=== PATIENT | female | born 1945 | race Caucasian/White ===

== ENCOUNTER → 2017-02-15 | Outpatient (CLI) | payer MEDICARE, BC ==
--- NOTE | 2017-02-16 12:58 | MM ---
Reason for exam: screening (asymptomatic). Last mammogram was performed 1 year and 1 month ago. History: Patient is postmenopausal. Family history of breast cancer in mother at age 68. Took progesterone for 2 years beginning at age 48. Physical Findings: A clinical breast exam by your physician is recommended on an annual basis and results should be correlated with mammographic findings. MG 3D Screening Mammo W/Cad Bilateral CC and MLO view(s) were taken. Prior study comparison: January 31, 2016, bilateral MG 3d screening mammo w/cad. December 09, 2014, bilateral MG screening mammo w CAD. October 28, 2013, bilateral digital screening mammo w/CAD. There are scattered fibroglandular densities. Finding: There are typically benign vascular calcifications in both breasts. There is no discrete abnormality. ASSESSMENT: Benign, BI-RAD 2 RECOMMENDATION: Routine screening mammogram of both breasts in 1 year.
== END | disposition home or self-care (01) ==
LOC: RADMAMWWP 10:54
PROVIDERS: ATTEND Family Medicine
DX: Z12.31 Encounter for screening mammogram for malignant neoplasm of breast (principal)
CPT/HCPCS: 77063; G0202

== ENCOUNTER → 2017-06-26 | Outpatient (CLI) | payer MEDICARE, BC ==
[2017-06-26 18:03] LABS: Blood Urea Nitrogen 16 mg/dL (7-17); Non-African American GFR(MDRD) >60 (>60 ml/min/1.73 sqM)
--- NOTE | 2017-06-27 08:33 | CT ---
EXAMINATION TYPE: CT abdomen pelvis w con DATE OF EXAM: 06/26/2017 COMPARISON: NONE INDICATION: Left sided abdominal pain x 2 weeks with constipation. DLP: 1164.00 mGycm, Automated exposure control for dose reduction was used. CONTRAST: 100 mL of Omnipaque 300. Study performed with Oral Contrast TECHNIQUE: Axial images were obtained from above the diaphragm to the pubic rami in the axial plane a t 5 mm thick sections. Reconstructed images are reviewed on the computer in the coronal plane. FINDINGS: Limited CT sections are obtained the lung bases. There is some minimal pneumonitis change along the posterior lateral left lung base. Lung bases otherwise appear clear.. CT ABDOMEN: Liver: Normal Spleen: Normal Pancreas: There is a 0.7 cm hypodensity within the posterior tail of the pancreas. Series 3 image 22- 23. Additional characterization can be performed with MRI. Adrenal glands: Left adrenal gland is enlarged at 2.0 cm with an irregular hypodense area within. Thi s is nonspecific. Metastatic lesion could be considered. Mild lipoma is not excluded. This could be f urther evaluated with MRI the right adrenal gland appears normal Gallbladder: Surgically absent Kidneys: No masses are evident. No hydronephrosis is present. No cysts are present. Delayed images were obtained through the kidneys, which remain unremarkable. Aorta: Vascular calcification is within the aorta. Inferior vena cava: Normal. CT PELVIS: Loops of bowel within the abdomen and pelvis are normal. Fecal debris is within the colon. There are loops of bowel lacking oral contrast limiting their evaluation. Appendix: Normal as visualized. Urinary bladder: There may be some dependent on calcification present. This could be some wall enhanc ement. Wall thickening is not identified. Cystocele is present. Genitourinary structures: Uterus and ovaries are surgically absent Osseous structures: No suspicious lytic or sclerotic lesions. Facet degenerative changes through the lumbar spine. IMPRESSIONS: 1. Enlarged left heterogenous density adrenal gland measuring 2.0 cm. 2. 0.7 cm hypodensity within the posterior tail of pancreas is nonspecific. Cyst and neoplasm within the differential. Additional characterization with contrast MRI is recommended. A Yellow message has been communicated to Radha Duenas DO via the [employer] system on 06/27/2017 8:30 AM, Message ID [id number].
== END | disposition home or self-care (01) ==
LOC: RADCTMAIN 17:29
PROVIDERS: ATTEND Family Medicine
DX: E27.8 Other specified disorders of adrenal gland (principal); R93.3 Abnormal findings on diagnostic imaging of other parts of digestive tract
CPT/HCPCS: 82565; 84520; 74177; 36415; Q9967

== ENCOUNTER → 2018-03-12 | Outpatient (CLI) | payer MEDICARE, BC ==
--- NOTE | 2018-03-12 15:12 | P.HPOB ---
History of Present Illness H&P Date: 03/12/18 Chief Complaint: The patient is here for her routine gynecologic exam and mammogram. This is a 72-year-old with an LMP of 1979. She is status post HERMES ?BSO in 1983 uterine fibroids. The patient has a known cystocele and this has been followed conservatively. She previously was seen by Dr. Cui for this and the decision was made to proceed conservatively without surgery since it was asymptomatic. She is not specifically complaining of greater bulging from the vagina, but she has been experiencing some pelvic pains especially after bowel movements. She also has noticed more pelvic pains when bending over. The pain tends to be more on the left side and she describes it as a cramping type pain she has found that using Vaseline in the rectal area seems to help the discomfort. She is currently being treated for a urinary tract infection after developing urinary symptoms including urgency. She is now on her last day of Cipro, but she continues to have urinary symptoms. She is otherwise without complaints. Review of Systems She has lost 4 pounds over the last 3 years. She denies respiratory, cardiac and G.I. problems. She denies maltreatment or problems with falling. : she denies any significant problems with urinary leakage. But has had UTI symptoms and is being treated for this as in the HPI. 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 Past PRIMARY SPECIAL EDUCATOR history: she has no history of STDs. Past Surgical History: Cholecystectomy, Hysterectomy (HERMES), Tubal Ligation Additional Past Surgical History / Comment(s): Removal of umbilicus for chronic infection at age 21. Colonoscopy 2014 Past Psychological History: No Psychological Hx Reported Smoking Status: Never smoker Past Alcohol Use History: None Reported Past Drug Use History: None Reported Additional History: She has been since 1966 and is retired. - Past Family History Mother Family Medical History: Cancer (Breast) Brother(s) Family Medical History: Diabetes Mellitus, Myocardial Infarction ([place]) Medications and Allergies Home Medications Medication Instructions Recorded Confirmed Type Gabapentin [Neurontin] 100 mg PO HS 08/23/14 03/12/18 History Glimepiride [Amaryl] 1 tab PO DAILY 08/23/14 03/12/18 History metFORMIN HCL 1,000 mg PO BID 08/23/14 03/12/18 History sitaGLIPtin PHOSPHATE [Januvia] 100 mg PO DAILY 08/23/14 03/12/18 History Aspirin [Children's Aspirin] mg PO DAILY 03/12/18 History Allergies Allergy/AdvReac Type Severity Reaction Status Date / Time cephalexin monohydrate AdvReac Nausea Verified 03/12/18 14:05 [From Keflex] Exam Blood pressure 137/80, height 5'3", weight 159 pounds, BMI 28, temperature 97.6 and pulse 82. This is a well-developed well-nourished heavyset white female who is alert and oriented times 3 in no acute distress. HEENT: Within normal limits. NECK: Supple without mass or thyromegaly. CHEST AND LUNGS: Clear to auscultation. HEART: Regular rate and rhythm. BREASTS: Are without mass or discharge. AXILLARY EXAM: Negative for adenopathy. BACK: Negative for CVA tenderness. ABDOMEN: Soft, mildly obese, nontender, without palpable masses. PELVIC EXAM: External genitalia reveals mild atrophy with a grade for cystocele protruding from the introitus approximately 3 cm.. Vagina appears normal with mild atrophy and no excoriation of the mucosa. The vaginal cuff is well supported. Bimanual examination is negative for mass or tenderness. RECTAL EXAM: Rectovaginal exam is negative for mass or tenderness and is negative for occult blood. There is no significant rectocele noted. EXTREMITIES: Nontender. IMPRESSION: 1. 72-year-old menopausal female status post HERMES done for benign reasons with increasing grade 4 cystocele. 2. Intermittent pelvic pains especially after bowel movement or bending over. These pains may be related to the worsening cystocele. Differential diagnosis will also include symptomatic rectal or G.I. pain. This time I doubt ovarian pain since she believes her ovaries were removed at the time of her hysterectomy. Also the way she describes her pain makes me think that this is more likely G.I. type pain or pain related to the pelvic prolapse. PLAN: 1. Pap smears have been discontinued. 2. Self breast awareness was discussed. 3. Screening mammogram will be done today. 4. Osteoporosis prevention was discussed. We will plan a repeating bone density testing in one year. She did have a normal bone density test done in 2012. 5. We had a long discussion regarding her worsening cystocele and her symptoms. She will be referred to a supervisor webbing for possible surgical correction of the cystocele and further evaluation. She is requesting to be referred to Dr. Talamantes. 6. She will return in one year and PRN.
--- NOTE | 2018-03-14 11:20 | MM ---
Reason for exam: screening (asymptomatic). Last mammogram was performed 1 year and 1 month ago. History: Patient is postmenopausal. Family history of breast cancer in mother at age 68. Took progesterone for 2 years beginning at age 48. Physical Findings: A clinical breast exam by your physician is recommended on an annual basis and results should be correlated with mammographic findings. MG 3D Screening Mammo W/Cad Bilateral CC and MLO view(s) were taken. Prior study comparison: February 15, 2017, bilateral MG 3d screening mammo w/cad. January 31, 2016, bilateral MG 3d screening mammo w/cad. There are scattered fibroglandular densities. No significant changes when compared with prior studies. ASSESSMENT: Negative, BI-RAD 1 RECOMMENDATION: Routine screening mammogram of both breasts in 1 year.
== END | disposition home or self-care (01) ==
LOC: WWCWWP 13:43
PROVIDERS: ATTEND Obstetrics & Gynecology
DX: Z12.31 Encounter for screening mammogram for malignant neoplasm of breast (principal)
CPT/HCPCS: 77063; 77067

== ENCOUNTER 2018-10-26 12:23 | Emergency (ER) | payer MEDICARE, BC ==
[2018-10-26 12:44] VITALS: TEMP 97.7
[2018-10-26] MEDS ORDERED: MORPHINE SULFATE 4 MG/ML SYRINGE IV STA (14:02)
--- NOTE | 2018-10-26 14:07 | ED ---
General Adult HPI - General Chief complaint: Recheck/Abnormal Lab/Rx Stated complaint: upper back pain/tingling in fingers & mouth Time Seen by Provider: 10/26/18 13:04 Source: patient, RN notes reviewed Mode of arrival: ambulatory Limitations: no limitations - History of Present Illness Initial comments: Patient is a pleasant 72-year-old female presenting to the emergency Department with complaints of paresthesias. Onset was earlier this morning around 7:30 or so. Patient had numbness started her small finger that extended to her other fingers on her left hand. Patient states symptoms lasted less than half an hour then resolved. Patient also feels she had some symptoms on the left side of her mouth. Patient ever denies any weakness. No speech problems. No confusion. No visual changes. No history of similar symptoms previously. Patient has also noticed that she has discomfort of her mid upper back between her shoulder blades. Patient states discomfort is 8/10. Patient denies having discomfort of her anterior chest. No leg pain or leg swelling. - Related Data Home Medications Medication Instructions Recorded Confirmed Gabapentin [Neurontin] 100 mg PO HS 08/23/14 03/12/18 Glimepiride [Amaryl] 1 tab PO DAILY 08/23/14 03/12/18 metFORMIN HCL 1,000 mg PO BID 08/23/14 03/12/18 sitaGLIPtin PHOSPHATE [Januvia] 100 mg PO DAILY 08/23/14 03/12/18 Aspirin [Children's Aspirin] mg PO DAILY 03/12/18 Allergies Allergy/AdvReac Type Severity Reaction Status Date / Time cephalexin monohydrate AdvReac Nausea Verified 10/26/18 12:44 [From Keflex] Review of Systems ROS Statement: Those systems with pertinent positive or pertinent negative responses have been documented in the HPI. ROS Other: All systems not noted in ROS Statement are negative. Constitutional: Denies: fever Eyes: Denies: eye pain ENT: Denies: ear pain Respiratory: Denies: cough, dyspnea Cardiovascular: Reports: as per HPI. Denies: chest pain Endocrine: Denies: fatigue Gastrointestinal: Denies: abdominal pain Genitourinary: Denies: dysuria Musculoskeletal: Reports: as per HPI, back pain Skin: Denies: rash Neurological: Reports: as per HPI, paresthesias. Denies: headache, weakness, confusion Past Medical History Past Medical History: Diabetes Mellitus, Hyperlipidemia, Hypertension Additional Past Medical History / Comment(s): HAND AND FEET PAINS. History of Any Multi-Drug Resistant Organisms: None Reported Past Surgical History: Cholecystectomy, Hysterectomy, Tubal Ligation Additional Past Surgical History / Comment(s): Removal of umbilicus for chronic infection at age 21. Colonoscopy 2014 Past Psychological History: No Psychological Hx Reported Smoking Status: Never smoker Past Alcohol Use History: None Reported Past Drug Use History: None Reported - Past Family History Mother Family Medical History: Cancer (Breast) Brother(s) Family Medical History: Diabetes Mellitus, Myocardial Infarction ([place]) General Exam Limitations: no limitations General appearance: alert, in no apparent distress Head exam: Present: atraumatic Eye exam: Present: normal appearance, PERRL, EOMI. Absent: nystagmus ENT exam: Present: normal oropharynx Neck exam: Present: normal inspection Respiratory exam: Present: normal lung sounds bilaterally Cardiovascular Exam: Present: regular rate, normal rhythm Expanded Peripheral pulses: 2+: Radial (R), Radial (L), Posterior Tibialis (R), Posterior Tibialis (L), Dorsalis Pedis (R), Dorsalis Pedis (L) GI/Abdominal exam: Present: soft. Absent: distended, tenderness Extremities exam: Present: normal inspection Back exam: Present: normal inspection. Absent: tenderness Neurological exam: Present: alert, oriented X3, CN II-XII intact. Absent: motor sensory deficit Expanded Neurological exam: Present: protecting the airway Patient oriented to: Present: person, place, time Speech: Present: fluid speech Cranial nerves: EOM's Intact: Normal, Facial Sensation: Normal Cerebellar function: Finger to Nose: Normal Sensory exam: Upper Extremity Light Touch: Normal, Lower Extremity Light Touch: Normal Motor strength exam: RUE: 5, LUE: 5, RLE: 5, LLE: 5 Eye Response: (4) open spontaneously Motor Response: (6) obeys commands Verbal Response: (5) oriented Psychiatric exam: Present: normal affect, normal mood Skin exam: Present: normal color Course Vital Signs 10/26/18 12:40 Temperature 97.7 F Pulse Rate 111 H Respiratory 18 Rate Blood Pressure 178/80 O2 Sat by Pulse 99 Oximetry EKG Findings - EKG Comments: EKG Findings:: Normal sinus rhythm at 83. UT 158. QRS 88. QT 384. QTC 462. Left axis. Normal QRS. No acute ST change. Medical Decision Making - Medical Decision Making Patient reevaluated and resting comfortably in bed. Patient and family updated on results. Case was discussed in detail with Dr. De León, covering for Dr. Duenas who does recommend transfer. - Lab Data Result diagrams: 10/26/18 14:26 10/26/18 14:26 Lab Results 10/26/18 10/26/18 10/26/18 Range/Units 14:26 14:26 14:26 WBC 9.6 (3.8-10.6) k/uL RBC 4.88 (3.80-5.40) m/uL Hgb 13.6 (11.4-16.0) gm/dL Hct 40.2 (34.0-46.0) % MCV 82.4 (80.0-100.0) fL MCH 27.9 (25.0-35.0) pg MCHC 33.9 (31.0-37.0) g/dL RDW 13.4 (11.5-15.5) % Plt Count 352 (150-450) k/uL Neutrophils % 78 % Lymphocytes % 13 % Monocytes % 5 % Eosinophils % 2 % Basophils % 1 % Neutrophils # 7.4 (1.3-7.7) k/uL Lymphocytes # 1.2 (1.0-4.8) k/uL Monocytes # 0.5 (0-1.0) k/uL Eosinophils # 0.2 (0-0.7) k/uL Basophils # 0.1 (0-0.2) k/uL PT (9.0-12.0) sec INR (<1.2) APTT (22.0-30.0) sec Sodium 139 (137-145) mmol/L Potassium 4.7 (3.5-5.1) mmol/L Chloride 103 (98-107) mmol/L Carbon Dioxide 26 (22-30) mmol/L Anion Gap 10 mmol/L BUN 19 H (7-17) mg/dL Creatinine 0.68 (0.52-1.04) mg/dL Est GFR (CKD-EPI)AfAm >90 (>60 ml/min/1.73 sqM) Est GFR (CKD-EPI)NonAf 88 (>60 ml/min/1.73 sqM) Glucose 222 H (74-99) mg/dL Calcium 9.6 (8.4-10.2) mg/dL Total Bilirubin 0.6 (0.2-1.3) mg/dL AST 37 H (14-36) U/L ALT 57 H (9-52) U/L Alkaline Phosphatase 64 (38-126) U/L Total Creatine Kinase 36 (30-135) U/L CK-MB (CK-2) 1.4 (0.0-2.4) ng/mL CK-MB (CK-2) Rel Index 3.9 Troponin I <0.012 (0.000-0.034) ng/mL Total Protein 7.8 (6.3-8.2) g/dL Albumin 4.3 (3.5-5.0) g/dL 10/26/18 Range/Units 14:26 WBC (3.8-10.6) k/uL RBC (3.80-5.40) m/uL Hgb (11.4-16.0) gm/dL Hct (34.0-46.0) % MCV (80.0-100.0) fL MCH (25.0-35.0) pg MCHC (31.0-37.0) g/dL RDW (11.5-15.5) % Plt Count (150-450) k/uL Neutrophils % % Lymphocytes % % Monocytes % % Eosinophils % % Basophils % % Neutrophils # (1.3-7.7) k/uL Lymphocytes # (1.0-4.8) k/uL Monocytes # (0-1.0) k/uL Eosinophils # (0-0.7) k/uL Basophils # (0-0.2) k/uL PT 10.4 (9.0-12.0) sec INR 1.0 (<1.2) APTT 22.7 (22.0-30.0) sec Sodium (137-145) mmol/L Potassium (3.5-5.1) mmol/L Chloride (98-107) mmol/L Carbon Dioxide (22-30) mmol/L Anion Gap mmol/L BUN (7-17) mg/dL Creatinine (0.52-1.04) mg/dL Est GFR (CKD-EPI)AfAm (>60 ml/min/1.73 sqM) Est GFR (CKD-EPI)NonAf (>60 ml/min/1.73 sqM) Glucose (74-99) mg/dL Calcium (8.4-10.2) mg/dL Total Bilirubin (0.2-1.3) mg/dL AST (14-36) U/L ALT (9-52) U/L Alkaline Phosphatase (38-126) U/L Total Creatine Kinase (30-135) U/L CK-MB (CK-2) (0.0-2.4) ng/mL CK-MB (CK-2) Rel Index Troponin I (0.000-0.034) ng/mL Total Protein (6.3-8.2) g/dL Albumin (3.5-5.0) g/dL - Radiology Data Radiology results: report reviewed (Computed tomography scan the brain reveals no acute process. Computed tomography scan of the chest negative for pulmonary embolism. No aortic dissection or aneurysm.) Disposition Clinical Impression: TIA (transient ischemic attack) Disposition: OTHER INSTITUTION NOT DEFINED Is patient prescribed a controlled substance at d/c from ED?: No Referrals: Radha Duenas DO [Primary Care Provider] - 1-2 days Time of Disposition: 16:37 - Out of Hospital Transfer - Req. Specs Out of Hospital Transfer - Requested Specifics: Other Emergency Center
[2018-10-26 14:41] LABS: Basophils # (A) 0.1 k/uL (0-0.2); Basophils % (A) 1 %; Eosinophils # (A) 0.2 k/uL (0-0.7); Eosinophils % (A) 2 %; HCT 40.2 % (34.0-46.0); HGB 13.6 gm/dL (11.4-16.0); Lymphocytes # (A) 1.2 k/uL (1.0-4.8); Lymphocytes % (A) 13 %; MCH 27.9 pg (25.0-35.0); MCHC 33.9 g/dL (31.0-37.0); MCV 82.4 fL (80.0-100.0); Mean Platelet Volume 7.3; Monocytes # (A) 0.5 k/uL (0-1.0); Monocytes % (A) 5 %; Neutrophils # (A) 7.4 k/uL (1.3-7.7); Neutrophils % (A) 78 %; Platelet Count 352 k/uL (150-450); RBC 4.88 m/uL (3.80-5.40); RDW 13.4 % (11.5-15.5); WBC 9.6 k/uL (3.8-10.6)
[2018-10-26 14:50] LABS: Partial Thromboplastin Time 22.7 sec (22.0-30.0); Prothrombin Time 10.4 sec (9.0-12.0)
[2018-10-26 14:51] LABS: ALT 57 U/L (9-52); AST 37 U/L (14-36); Albumin 4.3 g/dL (3.5-5.0); Alkaline Phosphatase 64 U/L (38-126); Anion Gap 10 mmol/L; Blood Urea Nitrogen 19 mg/dL (7-17); Calcium 9.6 mg/dL (8.4-10.2); Carbon Dioxide 26 mmol/L (22-30); Chloride 103 mmol/L (98-107); Glucose 222 mg/dL (74-99); Potassium 4.7 mmol/L (3.5-5.1); Sodium 139 mmol/L (137-145); Total Bilirubin 0.6 mg/dL (0.2-1.3); Total Protein 7.8 g/dL (6.3-8.2)
[2018-10-26 15:05] LABS: Creatine Kinase 36 U/L (30-135)
[2018-10-26 15:17] LABS: Creatine Kinase MB 1.4 ng/mL (0.0-2.4); Troponin I <0.012 ng/mL (0.000-0.034)
--- NOTE | 2018-10-26 15:44 | CT ---
EXAMINATION TYPE: CT brain wo con DATE OF EXAM: 10/26/2018 COMPARISON: None HISTORY: tingling in fingers and mouth CT DLP: 1050.4 mGycm Automated exposure control for dose reduction was used. FINDINGS: There is cerebral cortical atrophy. There is no mass effect nor midline shift. There is no sign of in tracranial hemorrhage. Calvarium is intact. IMPRESSION: CEREBRAL ATROPHY. NO ACUTE INTRACRANIAL ABNORMALITY.
--- NOTE | 2018-10-26 16:03 | CT ---
EXAMINATION TYPE: CT angio chest DATE OF EXAM: 10/26/2018 3:41 PM COMPARISON: None HISTORY: pain between shoulder blades, tingling in fingertips, mouth CT DLP: 918.3 mGycm Automated exposure control for dose reduction was used. CONTRAST: CTA scan of the thorax is performed with IV Contrast, patient injected with 100 mL of Isovue 370, pul monary embolism protocol. . FINDINGS: There are 3-D post processed images. Heart size is fairly normal. There is no pericardial effusion. Thoracic aorta shows no evidence of an eurysm or dissection. There is normal contrast opacification of the pulmonary arteries. There is ciera nary artery calcification on the noncontrast images. There is mild bronchial cartilage calcification. There is a few paratracheal lymph nodes that measure less than 1 cm. There are no hilar masses. There is spurring in the thoracic spine. I see no bony destructive process. There is some mild reticular i nfiltrate in the anterior right upper lobe. There is no evidence of a pulmonary mass. There is no ple ural effusion. There is low-density 2 cm left adrenal mass. IMPRESSION: NO EVIDENCE OF EMBOLISM. NO EVIDENCE OF THORACIC AORTIC ANEURYSM OR DISSECTION. MILD RETICULAR DENSIT Y RIGHT UPPER LOBE CONSISTENT WITH SCARRING. LOW-DENSITY LEFT ADRENAL MASS SUGGESTIVE OF BENIGN DISEA SE. THIS APPEARS UNCHANGED COMPARED TO ABDOMEN CT SCAN 06/26/2017.
[2018-10-26 16:44] VITALS: BP 152/76; PULSE 83; RESP 11
== END 2018-10-26 19:15 | disposition other institution (70) ==
LOC: EC 12:23
DX: G45.9 Transient cerebral ischemic attack, unspecified (principal); E11.9 Type 2 diabetes mellitus without complications; I10 Essential (primary) hypertension; Z79.84 Long term (current) use of oral hypoglycemic drugs; Z79.82 Long term (current) use of aspirin; Z79.899 Other long term (current) drug therapy; Z88.1 Allergy status to other antibiotic agents
CPT/HCPCS: 36415; 93005; 80053; 82550; 82553; 84484; 85025; 85610; 85730; 70450; 71275; 99285; 96374; J2270; Q9967

== ENCOUNTER → 2018-11-11 | Outpatient (CLI) | payer MEDICARE, BC ==
--- NOTE | 2018-11-11 12:12 | ECHOF ---
Referral Reason:I20.0 Unstable angina I25.10 Atherosclerotic ... MEASUREMENTS -------- HEIGHT: 160.0 cm WEIGHT: 73.5 kg BP: 113/65 RVIDd: 2.5 cm (< 3.3) IVSd: 1.1 cm (0.6 - 1.1) LVIDd: 3.7 cm (3.9 - 5.3) LVPWd: 1.0 cm (0.6 - 1.1) IVSs: 1.6 cm LVIDs: 2.6 cm LVPWs: 1.3 cm LA Diam: 3.6 cm (2.7 - 3.8) LAESV Index (A-L): 23.88 ml/m Ao Diam: 3.5 cm (2.0 - 3.7) AV Cusp: 1.7 cm (1.5 - 2.6) MV EXCURSION: 15.184 mm (> 18.000) MV EF SLOPE: 76 mm/s (70 - 150) EPSS: 0.8 cm MV E Juan Antonio: 1.05 m/s MV DecT: 198 ms MV A Juan Antonio: 1.08 m/s MV E/A Ratio: 0.98 RAP: 5.00 mmHg RVSP: 30.70 mmHg FINDINGS -------- Sinus rhythm. This was a technically good study. The left ventricular size is normal. There is borderline concentric left ventricular hypertrophy. Overall left ventricular systolic function is normal with, an EF between 55 - 60 %. The right ventricle is normal in size. Normal LA size by volume 22+/-6 ml/m2. The right atrial size is normal. The aortic valve is trileaflet and appears structurally normal. The mitral valve is normal. Mild mitral regurgitation is present. Mild tricuspid regurgitation present. Right ventricular systolic pressure is normal at < 35 mmHg. There is no pulmonic regurgitation present. The aortic root size is normal. Normal inferior vena cava with normal inspiratory collapse consistent with estimated right atrial pre ssure of 5 mmHg. There is no pericardial effusion. CONCLUSIONS -------- 1. Sinus rhythm. 2. This was a technically good study. 3. The left ventricular size is normal. 4. There is borderline concentric left ventricular hypertrophy. 5. Overall left ventricular systolic function is normal with, an EF between 55 - 60 %. 6. Normal LA size by volume 22+/-6 ml/m2. 7. The aortic valve is trileaflet and appears structurally normal. 8. Mild mitral regurgitation is present. 9. Mild tricuspid regurgitation present. 10. Right ventricular systolic pressure is normal at < 35 mmHg. 11. There is no pulmonic regurgitation present. 12. The aortic root size is normal. 13. Normal inferior vena cava with normal inspiratory collapse consistent with estimated right atrial pressure of 5 mmHg. 14. There is no pericardial effusion. SIDE SPLITTER: Melissa Guerrier RDCS
== END | disposition home or self-care (01) ==
LOC: RADECHMAIN 08:06
PROVIDERS: ATTEND Family Medicine
DX: I08.1 Rheumatic disorders of both mitral and tricuspid valves (principal); I25.110 Atherosclerotic heart disease of native coronary artery with unstable angina pectoris; Z88.1 Allergy status to other antibiotic agents; Z88.8 Allergy status to other drugs, medicaments and biological substances
CPT/HCPCS: 93306

== ENCOUNTER → 2018-11-19 | Outpatient (CLI) | payer MEDICARE, BC ==
[~2018-11-19] MED LIST: REGADENOSON 0.4 MG/5 ML SYRINGE IV ONE
--- NOTE | 2018-11-19 11:23 | NM ---
EXAMINATION TYPE: NM stress lexiscan cardiolite DATE OF EXAM: 11/19/2018 COMPARISON: NONE HISTORY: Chest pain TECHNIQUE: After the intravenous administration of 9.6 mCi Tc 99m Sestamibi - Cardiolite resting SPE CT images acquired 40 minutes post injection. The patient received 0.4mg Lexiscan, 25.7 mCi Tc 99m Sestamibi - Stress images obtained [address] injection FINDINGS: Review of stress and rest SPECT images demonstrates reduced perfusion on stress images in the inferio r wall the myocardium.. Gated analysis shows normal wall motion with an estimated left ventricular e jection fraction of 71 %. Report called to referring clinician. IMPRESSION: Correlate for a small area of stress-induced reversible ischemia inferior myocardial wall.
--- NOTE | 2018-11-19 14:28 | EST ---
EXERCISE STRESS AGE: 73 SEX: F HT: 5'0" WT: 164 PROTOCOL: Lexiscan Cardiolite Stress test HEART RATE REST: 88 BLOOD PRESSURE REST: 172/77. MAXIMUM HEART RATE ACHIEVED: 96. MAXIMUM BLOOD PRESSURE: 155/69. INDICATIONS: Heart disease CLINICAL INFORMATION: Baseline rhythm is sinus mechanism rate of 88, normal axis and intervals poor progression. Baseline blood pressure 172/77 mmHg. Patient received injection of Lexiscan. Electrocardiographic monitoring revealed no evidence of diagnostic ischemic ST deviation. Cardiolite was injected per protocol. CONCLUSION: 1. Nondiagnostic electrocardiograph stress testing. 2. Nuclear images will be reported separately. MMODL / IJN: [id number] /
== END ==
LOC: RADNMMAIN 08:30
PROVIDERS: ATTEND Nurse Practitioner Family
DX: I25.110 Atherosclerotic heart disease of native coronary artery with unstable angina pectoris (principal)
CPT/HCPCS: 93017; 78452; A9500; J2785

== ENCOUNTER → 2019-07-24 | Outpatient (CLI) | payer MEDICARE, BC ==
--- NOTE | 2019-07-25 11:10 | MM ---
Reason for exam: screening (asymptomatic). Last mammogram was performed 1 year and 4 months ago. History: Patient is postmenopausal. Family history of breast cancer in mother at age 68. Took progesterone for 2 years beginning at age 48. Physical Findings: A clinical breast exam by your physician is recommended on an annual basis and results should be correlated with mammographic findings. MG 3D Screening Mammo W/Cad Bilateral CC and MLO view(s) were taken. Prior study comparison: March 12, 2018, bilateral MG 3d screening mammo w/cad. February 15, 2017, bilateral MG 3d screening mammo w/cad. There are scattered fibroglandular densities. Benign appearing bilateral calcifications. No suspicious abnormality. No significant changes when compared with prior studies. ASSESSMENT: Benign, BI-RAD 2 RECOMMENDATION: Routine screening mammogram of both breasts in 1 year.
== END | disposition home or self-care (01) ==
LOC: RADMAMWWP 14:43
PROVIDERS: ATTEND Family Medicine
DX: Z12.31 Encounter for screening mammogram for malignant neoplasm of breast (principal); Z80.3 Family history of malignant neoplasm of breast
CPT/HCPCS: 77063; 77067

== ENCOUNTER → 2021-02-09 | Outpatient (CLI) | payer MEDICARE, BC ==
--- NOTE | 2021-02-10 12:18 | MM ---
Reason for exam: screening (asymptomatic). Last mammogram was performed 1 year and 7 months ago. History: Patient is postmenopausal. Family history of breast cancer in mother at age 68. Took hormonal contraceptives for 2 months. Took progesterone for 2 years beginning at age 48. Physical Findings: A clinical breast exam by your physician is recommended on an annual basis and results should be correlated with mammographic findings. MG 3D Screening Mammo W/Cad Bilateral CC and MLO view(s) were taken. Prior study comparison: July 24, 2019, bilateral MG 3d screening mammo w/cad. March 12, 2018, bilateral MG 3d screening mammo w/cad. There are scattered fibroglandular densities. No significant changes when compared with prior studies. ASSESSMENT: Benign, BI-RAD 2 RECOMMENDATION: Routine screening mammogram of both breasts in 1 year.
== END | disposition home or self-care (01) ==
LOC: RADMAMWWP 08:13
PROVIDERS: ATTEND Family Medicine
DX: Z12.31 Encounter for screening mammogram for malignant neoplasm of breast (principal); Z80.3 Family history of malignant neoplasm of breast
CPT/HCPCS: 77063; 77067

== ENCOUNTER → 2021-05-30 | Outpatient (CLI) | payer MEDICARE, BC ==
[2021-05-30 11:31] LABS: African American GFR (CKD) >90 (>60 ml/min/1.73 sqM); Anion Gap 9 mmol/L; Blood Urea Nitrogen 15 mg/dL (7-17); Carbon Dioxide 28 mmol/L (22-30); Chloride 101 mmol/L (98-107); Glucose 190 mg/dL (74-99); Non-African American GFR(CKD) 81 (>60 ml/min/1.73 sqM); Potassium 4.7 mmol/L (3.5-5.1); Sodium 138 mmol/L (137-145)
[2021-05-30 11:49] LABS: Basophils # (A) 0.1 k/uL (0-0.2); Basophils % (A) 1 %; Eosinophils # (A) 0.2 k/uL (0-0.7); Eosinophils % (A) 3 %; HCT 39.5 % (34.0-46.0); HGB 13.4 gm/dL (11.4-16.0); Lymphocytes # (A) 1.4 k/uL (1.0-4.8); Lymphocytes % (A) 17 %; MCH 29.3 pg (25.0-35.0); MCHC 34.1 g/dL (31.0-37.0); MCV 86.1 fL (80.0-100.0); Mean Platelet Volume 8.4; Monocytes # (A) 0.4 k/uL (0-1.0); Monocytes % (A) 5 %; Neutrophils # (A) 5.7 k/uL (1.3-7.7); Neutrophils % (A) 72 %; Platelet Count 337 k/uL (150-450); RBC 4.58 m/uL (3.80-5.40); RDW 13.2 % (11.5-15.5); WBC 7.9 k/uL (3.8-10.6)
[2021-05-31 19:05] LABS: Hemoglobin A1C 8.4 % (4.0-6.0)
== END | disposition home or self-care (01) ==
LOC: LABPAT 10:01
PROVIDERS: ATTEND Obstetrics & Gynecology
DX: Z01.812 Encounter for preprocedural laboratory examination (principal); N81.11 Cystocele, midline
CPT/HCPCS: 36415; 80051; 82565; 82947; 83036; 84520; 85025; 87086

== ENCOUNTER 2024-08-18 14:29 | Emergency (ER) | payer MEDICARE, OTHER ==
[2024-08-18 17:08] LABS: Basophils # (A) 0.1 k/uL (0-0.2); Basophils % (A) 1 %; Eosinophils # (A) 0.1 k/uL (0-0.7); Eosinophils % (A) 1 %; HCT 42.3 % (34.0-46.0); Lymphocytes # (A) 1.1 k/uL (1.0-4.8); Lymphocytes % (A) 12 %; MCH 28.7 pg (25.0-35.0); MCHC 33.1 g/dL (31.0-37.0); MCV 86.7 fL (80.0-100.0); Mean Platelet Volume 7.4; Monocytes # (A) 0.4 k/uL (0-1.0); Monocytes % (A) 5 %; Neutrophils # (A) 7.6 k/uL (1.3-7.7); Neutrophils % (A) 80 %; Platelet Count 402 k/uL (150-450); RBC 4.88 m/uL (3.80-5.40); RDW 13.3 % (11.5-15.5); WBC 9.5 k/uL (3.8-10.6)
[2024-08-18 17:24] LABS: ALT 25 U/L (4-34); AST 31 U/L (14-36); African American GFR (CKD) >90 (>60 ml/min/1.73 sqM); Albumin 4.6 g/dL (3.5-5.0); Alkaline Phosphatase 71 U/L (38-126); Anion Gap 11 mmol/L; Blood Urea Nitrogen 21 mg/dL (7-17); Calcium 9.6 mg/dL (8.4-10.2); Carbon Dioxide 26 mmol/L (22-30); Chloride 100 mmol/L (98-107); Glucose 128 mg/dL (74-99); Lipase 89 U/L (23-300); Magnesium 1.4 mg/dL (1.6-2.3); Non-African American GFR(CKD) 81 (>60 ml/min/1.73 sqM); Partial Thromboplastin Time 22.9 sec (22.0-30.0); Potassium 3.7 mmol/L (3.5-5.1); Prothrombin Time 11.1 sec (10.0-12.5); Sodium 137 mmol/L (137-145); Total Bilirubin 0.7 mg/dL (0.2-1.3); Total Protein 8.1 g/dL (6.3-8.2)
[2024-08-18] MEDS: ACETAMINOPHEN TAB 325 MG TAB PO STA (17:30)
--- NOTE | 2024-08-18 17:51 | XR ---
EXAMINATION TYPE: XR thoracic spine 2V DATE OF EXAM: 08/18/2024 5:15 PM COMPARISON: None CLINICAL INDICATION: Female, 78 years old with history of pain; TECHNIQUE: XR thoracic spine 2V views of the spine in Frontal and lateral projections. FINDINGS: No evidence of acute fracture. There is scattered multilevel disk space narrowing without loss of ve rtebral body height. There is normal alignment of the thoracic vertebral bodies. Scattered osteophyte formation along the anterior and lateral aspects of the vertebral bodies. Neural foramen are patent given limitations of this exam. Spinal canal appears patent. IMPRESSION: 1. No acute osseous pathology. 2. 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 [facility], , 08/18/2024 5:48 PM
--- NOTE | 2024-08-18 17:52 | XR ---
EXAMINATION TYPE: XR chest 2V DATE OF EXAM: 08/18/2024 5:15 PM COMPARISON: Chest radiographs from 10/26/2018 CLINICAL INDICATION: Female, 78 years old with history of Chest Pain; [facility] TECHNIQUE: XR chest 2V Frontal and lateral views of the chest. FINDINGS: Lungs/Pleura: There is no evidence of pleural effusion, focal consolidation, or pneumothorax. Pulmonary vascularity: Unremarkable. Heart/mediastinum: Cardiomediastinal silhouette is unremarkable. Musculoskeletal: No acute osseous pathology. IMPRESSION: No acute cardiopulmonary disease/process. [facility], , 08/18/2024 5:49 PM
[2024-08-18 18:20] LABS: Bacteria,Urine Rare /hpf; Hyaline Casts,Urine 1 /lpf (0-2); Mucus,Urine Rare /hpf; RBC,Urine 29 /hpf (0-5); Squamous Epithelial Cell,Urine 1 /hpf (0-4); WBC,Urine 24 /hpf (0-5)
[2024-08-18 18:26] VITALS: PULSE 86; TEMP 98
[2024-08-18 18:46] LABS: Appearance,Urine Slightly Cloudy (Clear); Bilirubin,Urine Negative (Negative); Color,Urine Colorless; Glucose,Urine (UA) Negative (Negative); Ketones,Urine Negative (Negative); Protein,Urine Negative (Negative); Specific Gravity,Urine 1.008 (1.001-1.035)
[2024-08-18 18:47] LABS: Blood,Urine Negative (Negative); Leukocyte Esterase,Urine Large (Negative); Nitrite,Urine Negative (Negative); Urobilinogen,Urine <2.0 mg/dL (<2.0)
--- NOTE | 2024-08-18 20:07 | ED ---
Back Pain HPI - General Chief Complaint: Back Pain/Injury Stated Complaint: Tevin shoulder pain Time Seen by Provider: 08/18/24 14:45 Source: patient Limitations: no limitations - History of Present Illness Initial Comments: 78-year-old female presents to the emergency department with multiple complaints. Patient reports to right sided scapular pain which is tender to palpation and movement. States it has been going on for several months but has been a little bit worse over the past couple of days. She has associated nausea, congestion. Also felt some heartburn. She denies being short of breath. Patient has a history of diabetes and hypertension. Denies cardiac disease. Denies abdominal pain. No vomiting. Denies any changes in her bowel or bladder habits to include diarrhea, constipation, black or bloody stools. Patient does have frequent UTIs. She is currently on an antibiotic for her UTIs. She is supposed to have surgery on her bladder. She requires cardiac preop clearance and therefore she does have an appointment to see the book cleaner this week. No other alleviating, precipitating or modifying factors - Related Data Home Medications Medication Instructions Recorded Confirmed Glimepiride [Amaryl] 4 mg PO DAILY 08/23/14 08/21/24 metFORMIN HCL [Glucophage] 1,000 mg PO BID 08/23/14 08/21/24 sitaGLIPtin PHOSPHATE [Januvia] 100 mg PO DAILY 08/23/14 08/21/24 Aspirin [Adult Low Dose Aspirin EC] 81 mg PO DAILY 06/01/21 08/21/24 Cranberry (Unknown Dose) 2 tab PO HS 06/01/21 08/21/24 Magnesium (Unknown Dose) 1 tab PO DAILY 06/01/21 08/21/24 Multivit with Calcium,Iron,Min 1 each PO DAILY 06/01/21 08/21/24 [Women's Multivitamin] Lidocaine 5% Patch [Lidoderm] 1 patch TOPICAL DIRECTED PRN 08/21/24 08/21/24 hydroCHLOROthiazide 25 mg PO DAILY 08/21/24 08/21/24 [Hydrochlorothiazide] Allergies Allergy/AdvReac Type Severity Reaction Status Date / Time ciprofloxacin [From Cipro] Allergy Itching Verified 08/21/24 14:31 cephalexin monohydrate AdvReac Nausea, Verified 08/21/24 14:31 [From Keflex] stomach upset Review of Systems ROS Statement: Those systems with pertinent positive or pertinent negative responses have been documented in the HPI. ROS Other: All systems not noted in ROS Statement are negative. Past Medical History Past Medical History: Diabetes Mellitus, Hypertension Additional Past Medical History / Comment(s): HAND AND FEET PAINS. History of Any Multi-Drug Resistant Organisms: None Reported Past Surgical History: Cholecystectomy, Hysterectomy, Tubal Ligation Additional Past Surgical History / Comment(s): Removal of umbilicus for chronic infection at age 21. Colonoscopy 2014 Past Psychological History: No Psychological Hx Reported Smoking Status: Never smoker Past Alcohol Use History: None Reported Past Drug Use History: None Reported - Past Family History Mother Family Medical History: Cancer Brother(s) Family Medical History: Diabetes Mellitus, Myocardial Infarction (UT) General Exam Limitations: no limitations General appearance: alert, in no apparent distress Head exam: Present: atraumatic, normocephalic, normal inspection Eye exam: Present: normal appearance, PERRL, EOMI. Absent: scleral icterus, conjunctival injection, periorbital swelling ENT exam: Present: normal exam, mucous membranes moist Neck exam: Present: normal inspection. Absent: tenderness, meningismus, lymphadenopathy Respiratory exam: Present: normal lung sounds bilaterally, chest wall tenderness (Over the right posterior chest wall near the right scapula). Absent: respiratory distress, wheezes, rales, rhonchi, stridor Cardiovascular Exam: Present: regular rate, normal rhythm, normal heart sounds. Absent: systolic murmur, diastolic murmur, rubs, gallop, clicks GI/Abdominal exam: Present: soft, normal bowel sounds. Absent: distended, tenderness, guarding, rebound, rigid Extremities exam: Present: normal inspection, full ROM, normal capillary refill. Absent: tenderness, pedal edema, joint swelling, calf tenderness Back exam: Present: normal inspection Neurological exam: Present: alert, oriented X3, CN II-XII intact Psychiatric exam: Present: normal affect, normal mood Skin exam: Present: warm, dry, intact, normal color. Absent: rash Course Vital Signs 08/18/24 08/18/24 08/18/24 14:40 18:26 20:28 Temperature 97.6 F 98 F Pulse Rate 98 86 86 Respiratory 18 16 17 Rate Blood Pressure 149/82 129/78 160/68 O2 Sat by Pulse 100 97 96 Oximetry Medical Decision Making - Medical Decision Making Was pt. sent in by a medical professional or institution (, [facility], [facility]ACH, urgent care, hospital, or skilled nursing...) When possible be specific @ -No Did you speak to anyone other than the patient for history (EMS, parent, family, police, friend...)? What history was obtained from this source @ -Spoke with the for history Did you review nursing and triage notes (agree or disagree)? Why? @ -I reviewed and agree with nursing and triage notes Were old charts reviewed (outside hosp., previous admission, EMS record, old EKG, old radiological studies, urgent care reports/EKG's, skilled nursing records)? Report findings @ -No old charts were reviewed Differential Diagnosis (chest pain, altered mental status, abdominal pain women, abdominal pain men, vaginal bleeding, weakness, fever, dyspnea, syncope, headache, dizziness, GI bleed, back pain, seizure, CVA, palpatations, mental health, musculoskeletal)? @ -Differential Back Pain: Strain, zoster, cauda equina syndrome, epidural abscess, vertebral osteomyelitis, discitis, fracture, subluxation, disc herniation, DJD, spinal stenosis, dissection, AAA, pancreatitis, peptic ulcer disease, pyelonephritis, kidney stone, this is not meant to be an all-inclusive list. EKG interpreted by me (3pts min.). @ -Yes and demonstrates sinus rhythm with rate of 98. HI interval 225. QRS 106. QTc of 422. No acute ST segment elevations or depressions X-rays interpreted by me (1pt min.). @ -Yes and demonstrates no acute process CT interpreted by me (1pt min.). @ -None done U/S interpreted by me (1pt. min.). @ -None done What testing was considered but not performed or refused? (CT, X-rays, U/S, labs)? Why? @ -None What meds were considered but not given or refused? Why? @ -None Did you discuss the management of the patient with other professionals (professionals i.e. [facility] Abdullahi, ETIQUETTE COACH, lab, RT, psych nurse, psychiatric social worker, offal baler, teacher, licensed loan officer, case work aide)? Give summary @ -No Was smoking cessation discussed for >3mins.? @ -No Was critical care preformed (if so, how long)? @ -No Were there social determinants of health that impacted care today? How? (Homelessness, low income, unemployed, alcoholism, drug addiction, transpor tation, low edu. Level, literacy, decrease access to med. care, shelter, rehab)? @ -No Was there de-escalation of care discussed even if they declined (Discuss DNR or withdrawal of care, Hospice)? DNR status @ -No What co-morbidities impacted this encounter? (DM, HTN, Smoking, COPD, CAD, Cancer, CVA, ARF, Chemo, Hep., AIDS, mental health diagnosis, sleep apnea, morbid obesity)? @ -None Was patient admitted / discharged? Hospital course, mention meds given and route, prescriptions, significant lab abnormalities, going to OR and other pertinent info. @ -Upon arrival patient seen and evaluated in bed 22. Thorough history and physical exam was performed. IV access established. Laboratory studies are conducted. Chest x-ray was performed. Results are discussed with the patient. Patient comfortable discharge home at this time. She does have cardiac evaluation on Sunday. She was instructed to return for any new or worsening symptoms. Patient agreeable to the plan was discharged in stable condition Undiagnosed new problem with uncertain prognosis? @ -Yes Drug Therapy requiring intensive monitoring for toxicity (Heparin, Nitro, Insulin, Cardizem)? @ -No Were any procedures done? @ -No Diagnosis/symptom? @ -Acute right scapular pain Acute, or Chronic, or Acute on Chronic? @ -Acute Uncomplicated (without systemic symptoms) or Complicated (systemic symptoms)? @ -Complicated Side effects of treatment? @ -No Exacerbation, Progression, or Severe Exacerbation? @ -No Poses a threat to life or bodily function? How? (Chest pain, USA, UT, pneumonia, PE, COPD, DKA, ARF, appy, cholecystitis, CVA, Diverticulitis, Homicidal, Suicidal, threat to staff... and all critical care pts) @ -No - Lab Data Result diagrams: 08/18/24 16:58 08/18/24 16:58 Lab Results 08/18/24 08/18/24 08/18/24 Range/Units 16:58 16:58 16:58 WBC 9.5 (3.8-10.6) k/uL RBC 4.88 (3.80-5.40) m/uL Hgb 14.0 (11.4-16.0) gm/dL Hct 42.3 (34.0-46.0) % MCV 86.7 (80.0-100.0) fL MCH 28.7 (25.0-35.0) pg MCHC 33.1 (31.0-37.0) g/dL RDW 13.3 (11.5-15.5) % Plt Count 402 (150-450) k/uL MPV 7.4 Neutrophils % 80 % Lymphocytes % 12 % Monocytes % 5 % Eosinophils % 1 % Basophils % 1 % Neutrophils # 7.6 (1.3-7.7) k/uL Lymphocytes # 1.1 (1.0-4.8) k/uL Monocytes # 0.4 (0-1.0) k/uL Eosinophils # 0.1 (0-0.7) k/uL Basophils # 0.1 (0-0.2) k/uL PT 11.1 (10.0-12.5) sec INR 1.0 (<1.2) APTT 22.9 (22.0-30.0) sec Sodium 137 (137-145) mmol/L Potassium 3.7 (3.5-5.1) mmol/L Chloride 100 (98-107) mmol/L Carbon Dioxide 26 (22-30) mmol/L Anion Gap 11 mmol/L BUN 21 H (7-17) mg/dL Creatinine 0.72 (0.52-1.04) mg/dL Est GFR (CKD-EPI)AfAm >90 (>60 ml/min/1.73 sqM) Est GFR (CKD-EPI)NonAf 81 (>60 ml/min/1.73 sqM) Glucose 128 H (74-99) mg/dL Calcium 9.6 (8.4-10.2) mg/dL Magnesium 1.4 L (1.6-2.3) mg/dL Total Bilirubin 0.7 (0.2-1.3) mg/dL AST 31 (14-36) U/L ALT 25 (4-34) U/L Alkaline Phosphatase 71 (38-126) U/L Troponin I (0.000-0.034) ng/mL Total Protein 8.1 (6.3-8.2) g/dL Albumin 4.6 (3.5-5.0) g/dL Lipase 89 (23-300) U/L Urine Color Urine Appearance (Clear) Urine pH (5.0-8.0) Ur Specific Gardiner (1.001-1.035) Urine Protein (Negative) Urine Glucose (UA) (Negative) Urine Ketones (Negative) Urine Blood (Negative) Urine Nitrite (Negative) Urine Bilirubin (Negative) Urine Urobilinogen (<2.0) mg/dL Ur Leukocyte Esterase (Negative) Urine RBC (0-5) /hpf Urine WBC (0-5) /hpf Ur Squamous Epith Cells (0-4) /hpf Urine Bacteria (None) /hpf Hyaline Casts (0-2) /lpf Urine Mucus (None) /hpf SARS-CoV-2 (PCR) (Not Detectd) 08/18/24 08/18/24 08/18/24 Range/Units 16:58 17:32 17:32 WBC (3.8-10.6) k/uL RBC (3.80-5.40) m/uL Hgb (11.4-16.0) gm/dL Hct (34.0-46.0) % MCV (80.0-100.0) fL MCH (25.0-35.0) pg MCHC (31.0-37.0) g/dL RDW (11.5-15.5) % Plt Count (150-450) k/uL MPV Neutrophils % % Lymphocytes % % Monocytes % % Eosinophils % % Basophils % % Neutrophils # (1.3-7.7) k/uL Lymphocytes # (1.0-4.8) k/uL Monocytes # (0-1.0) k/uL Eosinophils # (0-0.7) k/uL Basophils # (0-0.2) k/uL PT (10.0-12.5) sec INR (<1.2) APTT (22.0-30.0) sec Sodium (137-145) mmol/L Potassium (3.5-5.1) mmol/L Chloride (98-107) mmol/L Carbon Dioxide (22-30) mmol/L Anion Gap mmol/L BUN (7-17) mg/dL Creatinine (0.52-1.04) mg/dL Est GFR (CKD-EPI)AfAm (>60 ml/min/1.73 sqM) Est GFR (CKD-EPI)NonAf (>60 ml/min/1.73 sqM) Glucose (74-99) mg/dL Calcium (8.4-10.2) mg/dL Magnesium (1.6-2.3) mg/dL Total Bilirubin (0.2-1.3) mg/dL AST (14-36) U/L ALT (4-34) U/L Alkaline Phosphatase (38-126) U/L Troponin I <0.012 (0.000-0.034) ng/mL Total Protein (6.3-8.2) g/dL Albumin (3.5-5.0) g/dL Lipase (23-300) U/L Urine Color Colorless Urine Appearance Slightly Cloudy H (Clear) Urine pH 6.0 (5.0-8.0) Ur Specific Gardiner 1.008 (1.001-1.035) Urine Protein Negative (Negative) Urine Glucose (UA) Negative (Negative) Urine Ketones Negative (Negative) Urine Blood Negative (Negative) Urine Nitrite Negative (Negative) Urine Bilirubin Negative (Negative) Urine Urobilinogen <2.0 (<2.0) mg/dL Ur Leukocyte Esterase Large (Negative) Urine RBC 29 H (0-5) /hpf Urine WBC 24 H (0-5) /hpf Ur Squamous Epith Cells 1 (0-4) /hpf Urine Bacteria Rare H (None) /hpf Hyaline Casts 1 (0-2) /lpf Urine Mucus Rare H (None) /hpf SARS-CoV-2 (PCR) Not Detected (Not Detectd) Disposition Clinical Impression: Back pain Disposition: HOME SELF-CARE Condition: Stable Instructions (If sedation given, give patient instructions): Back Pain (ED) Additional Instructions: Please follow-up with your primary care doctor for further evaluation of your symptoms. They may need to do further testing. Your cardiac workup was negative in the emergency department. You need to have your stress testing performed. Return for any new or worsening symptoms Is patient prescribed a controlled substance at d/c from ED?: No Referrals: Zafar San MD [Primary Care Provider] - 1-2 days Time of Disposition: 20:06
[2024-08-18] MEDS: LIDOCAINE 4% PATCH TOPICAL ONE (20:24)
[2024-08-18 20:29] VITALS: BP 160/68; RESP 17
== END 2024-08-18 20:29 | disposition home or self-care (01) ==
LOC: EC 14:29
DX: M25.511 Pain in right shoulder (principal); M54.9 Dorsalgia, unspecified; Z88.1 Allergy status to other antibiotic agents; Z11.52 Encounter for screening for COVID-19
CPT/HCPCS: 36415; 71046; 72070; 80053; 81001; 83690; 83735; 84484; 85025; 85610; 85730; 87635; 93005; 99284

== ENCOUNTER → 2024-08-18 | Outpatient (CLI) | payer MEDICARE, OTHER ==
[2024-08-18 19:36] LABS: Blood Urea Nitrogen 20.7 mg/dL (9.0-27.0); Chloride 97 mmol/L (96-109); Glucose 168 mg/dL (70-110); Potassium 4.2 mmol/L (3.5-5.5); Sodium 139 mmol/L (135-145)
[2024-08-18 19:38] LABS: Basophils # (A) 0.06 X 10*3/uL (0.00-0.10); Basophils % (A) 0.6 %; Eosinophils # (A) 0.16 X 10*3/uL (0.04-0.35); Eosinophils % (A) 1.6 %; HCT 41.1 % (37.2-46.3); HGB 13.3 g/dL (12.0-15.0); Lymphocytes # (A) 1.43 X 10*3/uL (0.90-5.00); Lymphocytes % (A) 14.2 %; MCH 28.4 pg (27.0-32.0); MCHC 32.4 g/dL (32.0-37.0); MCV 87.6 FL (80.0-97.0); Mean Platelet Volume 11.2 FL (9.5-12.2); Monocytes # (A) 0.71 X 10*3/uL (0.20-1.00); NRBC Per 100 WBC 0 X 10*3/uL (0.00-0.01); Neutrophils # (A) 7.67 X 10*3/uL (1.80-7.70); Neutrophils % (A) 76.1 %; Platelet Count 397 X 10*3/uL (140-440); RBC 4.69 X 10*6/uL (4.10-5.20); RDW 13.2 % (11.5-14.5); WBC 10.08 X 10*3/uL (4.50-10.00)
== END | disposition home or self-care (01) ==
LOC: LABWHC1 13:50
PROVIDERS: ATTEND Obstetrics & Gynecology
DX: Z01.818 Encounter for other preprocedural examination (principal); I10 Essential (primary) hypertension
CPT/HCPCS: 36415; 80051; 82565; 82947; 84520; 85025; 87086

== ENCOUNTER 2024-08-25 05:45 | Day surgery (SDC) | payer MEDICARE, OTHER ==
--- NOTE | 2024-08-22 01:28 | HP ---
HISTORY AND PHYSICAL DATE OF SURGERY: 08/25/2024. HISTORY OF PRESENT ILLNESS: The patient is well known to me for several years, who presented approximately 3 to 4 years ago with a symptomatic grade 4 cystocele and was scheduled for repair at that time. She was ultimately canceled by the medical team in advance for possible findings consistent with a silent myocardial infarction. She returned this year for re- evaluation having been apparently deemed stable by Cardiology and Primary Care and actually feels that her bulge has grown since the last time she was here. She continues to have issues with recurrent urinary tract infection, for which she sees Dr. Breen in Urology. She denies any leaking or splinting. She has requested surgical repair if she is surgically approved. PAST MEDICAL HISTORY: Significant for type 2 diabetes, history of fibroid uterus, hypertension, and frequent yeast infections. PAST SURGICAL HISTORY: Significant for cholecystectomy, hysterectomy, removal of her umbilicus secondary to infection and tubal ligation. There were no apparent anesthetic concerns. OBSTETRICAL HISTORY: 4, para 4-0-0-4 with 4 term vaginal deliveries. GYNECOLOGIC HISTORY: Unremarkable with no history of any infections to include STDs. She did undergo hysterectomy in 1981. FAMILY HISTORY: Noncontributory. SOCIAL HISTORY: The patient is and is a nonsmoker. She denies any significant alcohol or any other social concerns. CURRENT MEDICATIONS: Include, 1. Glimepiride 4 mg daily. 2. Hydrochlorothiazide 25 mg daily. 3. Januvia daily. 4. Metformin 1000 mg twice daily. 5. Nitrofurantoin 25 mg once at bedtime. 6. Cranberry extract daily. 7. Magnesium 200 mg daily. ALLERGIES: Keflex apparently caused GI upset. REVIEW OF SYSTEMS: Confined to history of present illness. PHYSICAL EXAMINATION: VITAL SIGNS: Stable. The patient is afebrile. GENERAL: This is a well-developed, well-nourished white female, in no acute distress. HEART: Has a regular rhythm and rate without murmur. LUNGS: Clear to auscultation bilaterally in all perez. ABDOMEN: Nondistended, has normoactive bowel sounds, soft, nontender, without any palpable masses, hepatosplenomegaly, or hernias. EXTREMITIES: Without any cyanosis, clubbing, or edema and are nontender to palpation bilaterally. PELVIC: Demonstrates normal external genitalia and the BUS with normal vaginal mucosa and apex. There is a grade 3 to 4 cystocele present. The uterus and cervix are surgically absent. ASSESSMENT AND PLAN: Symptomatic cystocele: The patient is scheduled for anterior colporrhaphy and is undergoing surgical clearance, which has not yet been completed at the time of this dictation. Nevertheless, the risks and complications of the procedure have been thoroughly discussed including the risks for bleeding, bleeding requiring transfusion, infection, injury to local structures to specifically include the bladder. I also have discussed the typical hospital and postoperative courses. She is scheduled for anterior colporrhaphy on the morning of August 25, 2024. MMODL / IJN: [id number] /
[2024-08-25 06:48] LABS: Glucose,Whole Blood 144 mg/dL (70-110)
[2024-08-25] MEDS: IV FLUID CONTINUATION 1,000 ML IV ONE (06:48)
[2024-08-25] MEDS: DEXAMETHASONE SOD PHOSPHATE 4 MG/ML 1 ML VIAL IV ONE (06:54)
[2024-08-25] MEDS: LACTATED RINGERS 1,000 ML IV SCH ×2 (06:54→10:11)
[2024-08-25] MEDS: ONDANSETRON 4 MG/2 ML VIAL IVP ONE (06:54)
[2024-08-25] MEDS: FAMOTIDINE 20 MG/2 ML VIAL IV STA (06:55)
[2024-08-25] MEDS ORDERED: MIDAZOLAM 2 MG/2 ML VIAL IV PRN (07:00)
[2024-08-25] MEDS ORDERED: KETOROLAC 15 MG/ML 1 ML VIAL ONE (07:29)
[2024-08-25] MEDS ORDERED: fentaNYL (PF) 50 MCG/ML 2 ML AMP ONE (07:29)
[2024-08-25] MEDS ORDERED: PROPOFOL 10 MG/ML 20 ML VIAL IV ONE (07:29)
[2024-08-25] MEDS ORDERED: LIDOCAINE 1% INJ 10MG/ML (20 ML MDV) ONE (07:29)
[2024-08-25] MEDS: VASOPRESSIN 20 UNIT/ML 1 ML VIAL SQ ONE ×2 (07:45)
[2024-08-25] MEDS: BACITRACIN ZINC 500 UNIT/GM OINT 28.4 GM TUBE TOPICAL ONE (07:47)
[2024-08-25] MEDS ORDERED: diphenhydrAMINE 25 MG CAP PO PRN (08:28)
[2024-08-25] MEDS ORDERED: METOCLOPRAMIDE 5 MG/ML 2 ML VIAL IVP PRN (08:28)
[2024-08-25] MEDS ORDERED: IBUPROFEN 600 MG TAB PO PRN (08:28)
[2024-08-25] MEDS ORDERED: diphenhydrAMINE 50 MG/ML 1 ML VIAL IVP PRN (08:28)
[2024-08-25] MEDS ORDERED: SIMETHICONE 80 MG CHEWABLE PO PRN (08:28)
[2024-08-25] MEDS ORDERED: KETOROLAC 15 MG/ML 1 ML VIAL IVP PRN (08:28)
[2024-08-25] MEDS ORDERED: ONDANSETRON 4 MG/2 ML VIAL IVP PRN (08:28)
--- NOTE | 2024-08-25 08:35 | P.OP ---
Date of Procedure: 08/25/24 Preoperative Diagnosis: #1. Symptomatic grade 4 cystocele Postoperative Diagnosis: Same Procedure(s) Performed: #1. Anterior colporrhaphy Anesthesia: other (General By LMA) Surgeon: Andrew Cui Roller Skater #1: Shanika Hdez Estimated Blood Loss (ml): 20 IV fluids (ml): 500 Urine output (ml): 100 Pathology: none sent Condition: stable Disposition: PACU Operative Findings: Preoperative pelvic evaluation under anesthesia confirmed a grade 4 cystocele present with reasonable apical support and the rectum appeared to be well supported. The postprocedural result appeared to be excellent. There was clear urine seen at the beginning and at the end of the case. Description of Procedure: The patient was prepped and draped in usual fashion after general anesthesia was administered by the anesthesiologist. A weighted speculum was placed and the uterosacral dimples were grasped with Allis clamps bilaterally. The vesicovaginal mucosa was infused with diluted vasopressin solution. The apex of the vagina was divided in a transverse fashion using a scalpel from uterosacral dimple to uterosacral dimple. The Allis clamps were transferred to the midline and the vesicovaginal mucosa undermined in the midline and divided from the apex of the vagina to the urethral apex of the repair with Allis clamps placed along the margins. The overlying mucosa was bluntly and sharply dissected from the underlying tissues bilaterally. After adequate dissection had been carried out, serial Constanza plication sutures were placed starting at the urethral apex to the apex of the vagina using 2-0 PDS. Prior to placement of the plication stitches, a Pruett catheter was placed into the bladder and it was drained of 100 mL of clear mae urine and the catheter left in place and clamped. After placing the Constanza plication stitches, the intervening redundant vaginal mucosa was trimmed bilaterally and discarded. The vaginal mucosa was then closed with a running locking stitch of 2-0 Vicryl from the urethral apex to the apex of the vagina. Estimated blood loss for the case was approximately 20 mL or less. There were no complications. All sponge, instrument, and needle counts were correct. Clear urine was again noted with a free moving catheter at the end of the case. The patient tolerated the procedure well and proceeded to the recovery room in stable condition.
[2024-08-25] MEDS: HYDROmorphone 0.5 MG/0.5 ML SYRINGE IVP PRN (08:51)
[2024-08-25 09:19] LABS: Glucose,Whole Blood 169 mg/dL (70-110)
[2024-08-25] MEDS ORDERED: LIDOCAINE 4% PATCH TOPICAL PRN (10:45)
[2024-08-25] MEDS: metFORMIN 500 MG TAB PO SCH (18:25)
[2024-08-25] MEDS: SENNOSIDES-DOCUSATE SODIUM 1 EACH TAB PO SCH (19:50)
[2024-08-26] MEDS: ACETAMINOPHEN TAB 325 MG TAB PO PRN (06:04)
[2024-08-26 06:26] LABS: Basophils % (A) 0 %; Eosinophils # (A) 0.2 k/uL (0-0.7); Eosinophils % (A) 1 %; HCT 33.8 % (34.0-46.0); HGB 11.1 gm/dL (11.4-16.0); Lymphocytes # (A) 2.1 k/uL (1.0-4.8); Lymphocytes % (A) 17 %; MCH 28.6 pg (25.0-35.0); MCHC 32.8 g/dL (31.0-37.0); Monocytes # (A) 0.8 k/uL (0-1.0); Monocytes % (A) 6 %; Neutrophils # (A) 9.1 k/uL (1.3-7.7); Neutrophils % (A) 73 %; Platelet Count 297 k/uL (150-450); RBC 3.88 m/uL (3.80-5.40); RDW 13.4 % (11.5-15.5); WBC 12.5 k/uL (3.8-10.6)
[2024-08-26] MEDS: GLIMEPIRIDE 2 MG TAB PO SCH (08:27)
[2024-08-26 08:33] VITALS: BP 132/75; PULSE 75; RESP 16; TEMP 98
--- NOTE | 2024-08-26 08:54 | P.DS ---
Providers Expected date of discharge: 08/26/24 Attending physician: Andrew Cui Primary care physician: Zafar San - Discharge Diagnosis(es) (1) Cystocele Current Visit: Yes Status: Acute Hospital Course: The patient is a 78-year-old woman who initially presented to the office several years ago with complaints of symptomatic cystocele at which time she was found with a grade 3+ cystocele. She has previously undergone hysterectomy in the past. Her initial surgery was scheduled and canceled secondary to potential cardiac complications. She represented recently having been told by primary care that she was cleared for surgery and requested cystocele repair. She was found with a grade 4 cystocele at that time. After cardiac clearance, she was taken to the operating room and underwent anterior colporrhaphy in an uncomplicated fashion. Her postoperative course was unremarkable with vital signs remaining stable and her temperature was afebrile throughout. She had her catheter removed the morning of postoperative day #1 and has not at this point we did. She is undergoing a voiding trial to ensure that she can adequately void. Assuming she is able to void 50% of her bladder volume on 2 separate occasions, she will be discharged to home on postoperative day #1 to follow-up in the office in 2 weeks for recheck in 6 weeks routinely. Discharge instructions included calling for any significantly increased bleeding, fever, pain, urinary complaints, GI complaints, or anything else that concerned her. She was most importantly instructed to do no heavy lifting over the next 6 weeks time. She understood her instructions and agrees to follow-up as noted above. Discharge medications included any normal home medications as well as [id number] analgesic pain medications. Discharge hemoglobin and hematocrit were 11.1 and 33.8 respectively. Procedures: Anterior colporrhaphy Patient Condition at Discharge: Stable Plan - Discharge Summary Discharge Rx Participant: No New Discharge Prescriptions: No Action sitaGLIPtin PHOSPHATE [Januvia] 100 mg PO DAILY metFORMIN HCL [Glucophage] 1,000 mg PO BID Glimepiride [Amaryl] 4 mg PO DAILY hydroCHLOROthiazide [Hydrochlorothiazide] 25 mg PO DAILY Lidocaine 5% Patch [Lidoderm] 1 patch TOPICAL DIRECTED PRN PRN Reason: Pain Magnesium (Unknown Dose) 1 tab PO DAILY Aspirin [Adult Low Dose Aspirin EC] 81 mg PO DAILY Cranberry (Unknown Dose) 2 tab PO HS Multivit with Calcium,Iron,Min [Women's Multivitamin] 1 each PO DAILY Discharge Medication List Glimepiride [Amaryl] 4 mg PO DAILY 08/23/14 [History] metFORMIN HCL [Glucophage] 1,000 mg PO BID 08/23/14 [History] sitaGLIPtin PHOSPHATE [Januvia] 100 mg PO DAILY 08/23/14 [History] Aspirin [Adult Low Dose Aspirin EC] 81 mg PO DAILY 06/01/21 [History] Cranberry (Unknown Dose) 2 tab PO HS 06/01/21 [History] Magnesium (Unknown Dose) 1 tab PO DAILY 06/01/21 [History] Multivit with Calcium,Iron,Min [Women's Multivitamin] 1 each PO DAILY 06/01/21 [History] Lidocaine 5% Patch [Lidoderm] 1 patch TOPICAL DIRECTED PRN 08/21/24 [History] hydroCHLOROthiazide [Hydrochlorothiazide] 25 mg PO DAILY 08/21/24 [History] Follow up Appointment(s)/Referral(s): Andrew Cui MD [STAFF PHYSICIAN] - 09/08/24 1:15 pm Discharge Disposition: HOME SELF-CARE
[2024-08-26] MEDS: LINAGLIPTIN 5 MG TABLET PO SCH (11:04)
== END 2024-08-26 11:35 | disposition home or self-care (01) ==
LOC: OR 05:45 → 4FBP 08:26 → OR 08-26 11:35
PROVIDERS: ATTEND Obstetrics & Gynecology
DX: N81.10 Cystocele, unspecified (principal); E11.9 Type 2 diabetes mellitus without complications; I10 Essential (primary) hypertension; Z87.440 Personal history of urinary (tract) infections; Z79.84 Long term (current) use of oral hypoglycemic drugs; Z79.899 Other long term (current) drug therapy; Z90.710 Acquired absence of both cervix and uterus; Z98.51 Tubal ligation status; Z90.49 Acquired absence of other specified parts of digestive tract; Z98.890 Other specified postprocedural states; Z88.1 Allergy status to other antibiotic agents; Z80.3 Family history of malignant neoplasm of breast; Z82.49 Family history of ischemic heart disease and other diseases of the circulatory system; Z82.3 Family history of stroke
CPT/HCPCS: 86900; 86901; 85025; 86850; 57240; J1100; J0690; J2405; J3490; J1171